=== PATIENT | male | born 1965 | race African-American/Black ===

== ENCOUNTER 2023-10-08 03:56 | Observation (INO) | payer BC ==
[2023-10-08 05:29] LABS: #Basophils 0.08 10x3/uL (0.0-0.2); %Basophils 0.9 % (0.0-1.0); %Eosinophils 3.9 % (0.0-10.0); %Lymphocytes 31.9 % (21.0-51.0); %Monocytes 8.8 % (0.0-10.0); %Neutrophils 54.1 % (42.0-75.0); Hematocrit 44.7 % (42.0-52.0); Hemoglobin 15.1 g/dL (14.0-18.0); Mean Corpuscular HGB CONC 33.8 g/dL (32.0-36.0); Mean Corpuscular Volume 82.9 fL (78.0-98.0); Mean Platelet Volume 13.7 fL (7.4-10.4); Platelet Count 175 10x3/uL (130-400); Red Blood Cell (RBC) Count 5.39 mill/uL (4.70-6.10)
[2023-10-08 05:39] LABS: ALT (SGPT) 29 U/L (8-55); AST (SGOT) 27 U/L (5-34); Albumin 3.9 g/dL (3.5-5.0); Alkaline Phosphatase 160 U/L (40-110); Anion Gap 16 mmol/L (10-20); BUN (Urea Nitrogen) 15 mg/dL (8.4-25.7); Bilirubin, Total 0.5 mg/dL (0.2-1.2); Calc. Creatinine Clearance 0 mL/min (70-130); Carbon Dioxide 23 mmol/L (22-29); Chloride 103 mmol/L (98-107); Estimated GFR 67; Globulin 3.4 g/dL (2.4-3.5); Glucose 142 mg/dL (70-105); Lipase 8 U/L (8-78); Potassium 3.2 mmol/L (3.5-5.1); Protein, Total 7.3 g/dL (6.0-8.3); Sodium 139 mmol/L (136-145)
[2023-10-08 05:43] LABS: Troponin I 0.033 ng/mL (< 0.028)
[2023-10-08] MEDS ORDERED: Aspirin Chewable 81 MG TAB ONE (06:40)
[2023-10-08] MEDS ORDERED: Potassium Bicarbonate/Cit Ac 20 MEQ TAB ONE (06:40)
[2023-10-08] MEDS ORDERED: Magnesium 2 GM/50 ML BAG (IN WATER) ONE (06:41)
[2023-10-08] MEDS ORDERED: Nitroglycerin 0.4 MG TAB (25 Tab Bottle) ONE (06:41)
[2023-10-08 06:42] LABS: Bacteria/HPF None Seen HPF (None Seen); Bilirubin Negative (Negative); Blood, Urine Negative (Negative); CAUTI Indications for Culture Pelvic or flank pain; Clarity Clear (Clear); Glucose, Urine (Dipstick) Normal (Negative); Ketone, Urine Negative (Negative); Leukocyte Negative Leu/uL (Negative); Nitrite Negative (Negative); Protein, Urine (Dipstick) Negative (Neg-Trace); RBC/HPF 0-3 HPF (0-3); Specific Gravity, Urine 1.007 (1.002-1.036); Squamous Epithelial None Seen HPF (0-3); Urobilinogen Normal mg/dL (Less than 2); WBC/HPF None Seen HPF (0-3)
[2023-10-08 06:43] LABS: Urine Culture Reflex No No
[2023-10-08 06:51] LABS: Troponin I 0.028 ng/mL (< 0.028)
[2023-10-08] MEDS ORDERED: Ondansetron ODT 4 MG TAB PO PRN (07:48)
[2023-10-08] MEDS ORDERED: HYDROcodone/Acetaminophen 7.5/325 mg Tablet PO PRN ×2 (07:48)
[2023-10-08] MEDS ORDERED: Ondansetron PF 4 MG/2 ML Vial IVP PRN (07:48)
[2023-10-08 10:03] LABS: Magnesium 2.7 mg/dL (1.6-2.6)
[2023-10-08 10:07] LABS: Troponin I 0.023 ng/mL (< 0.028)
[2023-10-08] MEDS ORDERED: Amlodipine 5 MG TAB ONE (11:59)
[2023-10-08] MEDS ORDERED: Lisinopril 20 MG TAB ONE (11:59)
[2023-10-08] MEDS: Amlodipine 10 MG TAB PO SCH (12:05)
[2023-10-08] MEDS: Lisinopril 20 MG TAB PO SCH (12:05)
[2023-10-08 15:36] VITALS: BMI 28.8
[2023-10-08] MEDS: Potassium Chloride 20 MEQ TAB PO SCH (18:29)
[2023-10-09 04:50] LABS: Anion Gap 12 mmol/L (10-20); BUN (Urea Nitrogen) 18 mg/dL (8.4-25.7); Calc. Creatinine Clearance 74 mL/min (70-130); Calcium 9.2 mg/dL (7.8-10.44); Carbon Dioxide 27 mmol/L (22-29); Chloride 105 mmol/L (98-107); Estimated GFR 63; Glucose 97 mg/dL (70-105); Potassium 3.4 mmol/L (3.5-5.1); Sodium 141 mmol/L (136-145)
[2023-10-09 05:02] LABS: #Basophils 0.06 10x3/uL (0.0-0.2); %Basophils 0.8 % (0.0-1.0); %Eosinophils 2.7 % (0.0-10.0); %Lymphocytes 25.4 % (21.0-51.0); %Monocytes 9.7 % (0.0-10.0); %Neutrophils 60.7 % (42.0-75.0); Hematocrit 42.8 % (42.0-52.0); Hemoglobin 14.4 g/dL (14.0-18.0); Mean Corpuscular HGB CONC 33.6 g/dL (32.0-36.0); Mean Corpuscular Hemoglobin 27.7 pg (27.0-31.0); Mean Corpuscular Volume 82.4 fL (78.0-98.0); Mean Platelet Volume 13.8 fL (7.4-10.4); Platelet Count 206 10x3/uL (130-400); RBC Distribution Width 14.3 % (11.5-14.5); Red Blood Cell (RBC) Count 5.23 mill/uL (4.70-6.10)
[2023-10-09] MEDS: NIFEdipine XL 60 MG ER.TAB PO SCH (05:22)
[2023-10-09] MEDS: Lisinopril 20 MG TAB PO SCH (09:13)
[2023-10-09 11:39] VITALS: BP 137/77; TEMP 98
[2023-10-11] MEDS ORDERED: FLU VACC QS2023-24(6MOS UP)/PF 60 MCG/0.5 ML SYRINGE IM ONE (09:00)
== END 2023-10-09 14:38 | disposition home or self-care (01) ==
LOC: EEVIPCON 03:56 → ERS 03:56 → INTOOBSV 06:40 → ERHOLD 06:40 → 2NO 14:42
PROVIDERS: ADMIT Student in an Organized Health Care Education/Training Program; ATTEND Internal Medicine
PROC: B246ZZZ Ultrasonography of Right and Left Heart (ICD-10-PCS; principal; 2023-10-08)
DX: I16.0 Hypertensive urgency (principal); R79.89 Other specified abnormal findings of blood chemistry; R94.31 Abnormal electrocardiogram [ECG] [EKG]; Z98.890 Other specified postprocedural states
CPT/HCPCS: 36415; 70450; 71045; 74176; 80048; 80053; 81001; 83690; 83735; 83880; 84443; 84484; 85025; 93005; 93306; 96365; G0378; J3475

== ENCOUNTER 2025-07-10 07:46 | Outpatient (CLI) | payer BC | END 2025-07-10 07:47 | disposition home or self-care (01) | LOC: ULT 07:46 | PROVIDERS: ATTEND Internal Medicine Nephrology | DX: I12.9 Hypertensive chronic kidney disease with stage 1 through stage 4 chronic kidney disease, or unspecified chronic kidney disease (principal); N18.9 Chronic kidney disease, unspecified; N28.1 Cyst of kidney, acquired | CPT/HCPCS: 76770; 93975 ==